=== PATIENT | female | born 1970 | race African-American/Black ===

== ENCOUNTER 2017-07-24 15:01 | Emergency (ER) | payer BC, OTHER ==
[~2017-07-24] VITALS: Ht 180.3 cm; Wt 97.5 kg
[2017-07-24 16:19] LABS: Basophils # (auto) 0.1 uL; Eosinophils # (auto) 0 uL; Lymphocytes # (auto) 1.7 uL; Monocytes # (auto) 0.6 uL; Monocytes % (auto) 5.9 % (0.0-12.0); Platelet Count (auto) 248 10^3/uL (140-450)
[2017-07-24 16:21] LABS: Basophils % (auto) 0.6 % (0.0-2.0); Eosinophils % (auto) 0.2 % (0.0-7.0); Hematocrit 35.4 % (36.0-46.0); Hemoglobin 11.3 g/dL (12.2-16.2); Lymphocytes % (auto) 16.5 % (10.0-50.0); Mean Corpuscular Volume 81.2 fL (80.0-100.0); Neutrophils # (auto) 7.7 uL; Neutrophils % (auto) 76.8 % (37.0-80.0); Red Blood Cells 4.37 10^6/uL (4.0-5.20); White Blood Cell 10.1 10^3/uL (4.4-10.8)
[2017-07-24 16:37] LABS: Alanine Aminotransferase 27 U/L (13-56); Albumin 3.6 g/dL (3.4-5.0); Anion Gap 7 (5-15); Aspartate Aminotransferase 22 U/L (15-37); BUN/Creatinine Ratio 16.8; Blood Urea Nitrogen 16 mg/dL (7-18); Calcium 8.4 mg/dL (8.5-10.1); Carbon Dioxide 26 mmol/L (21-32); Chloride 106 mmol/L (98-107); GFR African American 81 mL/min; GFR Non-African American 67 mL/min; Glucose 85 mg/dL (74-106); Magnesium 2.3 mg/dL (1.6-2.6); Potassium 3.9 mmol/L (3.5-5.1); Sodium 139 mmol/L (136-145)
[2017-07-24 16:42] LABS: Alkaline Phosphatase 68 U/L (45-117); Bilirubin, Total 0.1 mg/dL (0.2-1.0); Total Protein 7.8 g/dL (6.4-8.2)
[2017-07-24 20:07] LABS: Urine Bacteria FEW /hpf (None Seen); Urine Blood 2+ /uL (Negative); Urine WBC 13 /hpf (0 - 5)
[2017-07-24 20:08] VITALS: BP 120/62
== END 2017-07-24 21:00 | disposition home or self-care (01) ==
LOC: ER 15:12
DX: R55 Syncope and collapse (principal)
CPT/HCPCS: 36415; 70450; 80053; 81001; 81025; 83735; 84484; 85025; 93005